=== PATIENT | male | born 1980 | race Caucasian/White ===

== ENCOUNTER 2019-05-06 16:59 | Emergency (ER) | payer BC ==
[2019-05-06] MEDS ORDERED: diphenhydrAMINE 25 MG CAP ONE (17:15)
[2019-05-06] MEDS ORDERED: methylPREDNISolone Acetate 40 mg/ml Vial ONE (17:15)
== END 2019-05-06 17:41 | disposition home or self-care (01) ==
LOC: NAV ERS 16:59
DX: T63.461A Toxic effect of venom of wasps, accidental (unintentional), initial encounter (principal); F41.9 Anxiety disorder, unspecified; F32.9 Major depressive disorder, single episode, unspecified; Z87.891 Personal history of nicotine dependence
CPT/HCPCS: 96372; J1030; Q0163

== ENCOUNTER 2019-12-02 09:20 | Emergency (ER) | payer BC ==
[2019-12-02] MEDS ORDERED: Lidocaine 1% (PF) 30 ML VIAL ONE (09:43)
[2019-12-02] MEDS ORDERED: Adacel (T-DAP) 0.5 ML SYRINGE ONE (10:01)
[2019-12-02] MEDS ORDERED: Bacitracin 1 PK ONE ×2 (10:35)
== END 2019-12-02 10:55 | disposition home or self-care (01) ==
LOC: NAV ERS 09:20
DX: S56.421A Laceration of extensor muscle, fascia and tendon of right index finger at forearm level, initial encounter (principal); F41.9 Anxiety disorder, unspecified; F32.9 Major depressive disorder, single episode, unspecified; Z87.891 Personal history of nicotine dependence; Z23 Encounter for immunization; W26.0XXA Contact with knife, initial encounter
CPT/HCPCS: 12004; 90471; 90715; J2001

== ENCOUNTER 2021-10-03 11:31 | Emergency (ER) | payer BC | END 2021-10-03 12:15 | disposition home or self-care (01) | LOC: NAV ERS 11:31 | DX: L03.116 Cellulitis of left lower limb (principal); Z87.891 Personal history of nicotine dependence ==